=== PATIENT | female | born 1955 | race Caucasian/White ===

== ENCOUNTER 2016-06-13 18:54 | Emergency (ER) | payer BC ==
[2016-06-13 19:10] VITALS: BP 152/74
--- NOTE | 2016-06-13 19:15 | UC ---
Dizzy HPI HPI Summary: URI for approx 2 weeks with cough, congestion. Today developed some "woozy" dizziness, and rapid HR when she laid down. No fever. Teeth hurt, some facial pain. No cardiac hx and no cardiac risk factors. - History Of Current Complaint Stated Complaint: RAPID HEART RATE, DIZZINESS, LIGHTHEADED Time Seen by Provider: 06/13/16 18:56 Hx Obtained From: Patient Hx Last Menstrual Period: n/a Onset/Duration: Sudden Onset, Lasting Hours, Still Present Timing: Constant Severity Initially: Moderate Severity Currently: Moderate Pain Intensity: 0 Pain Scale Used: 0-10 Numeric Character: Lightheaded, Dizzy Aggravating Factor(s): Nothing Alleviating Factor(s): Nothing Associated Signs And Symptoms: Positive: Palpitations - rapid HR - Risk Factors Cardiac Risk Factors: Negative CVA Risk Factor: Negative - Allergies/Home Medications Allergies/Adverse Reactions: Allergies Allergy/AdvReac Type Severity Reaction Status Date / Time Tetracycline Allergy Itching Verified 06/13/16 19:04 Home Medications: Home Medications Ibuprofen [Advil] 600 mg PO Q4H PRN 06/13/16 [History Confirmed 06/13/16] diPHENhydraMINE PO* [Benadryl PO*] 25 mg PO BEDTIME PRN 06/13/16 [History Confirmed 06/13/16] PMH/Surg Hx/FS Hx/Imm Hx Previously Healthy: Yes - Surgical History Surgical History: Yes Surgery Procedure, Year, and Place: c section x 3, tubal ligation, t/a - Family History Known Family History: Positive: Cardiac Disease - mother - Social History Occupation: Employed Full-time Lives: Alone Alcohol Use: Occasionally Substance Use Type: None Smoking Status (MU): Never Smoked Tobacco - Immunization History Most Recent Influenza Vaccination: March 2015 Review of Systems Constitutional: Negative Skin: Negative Eyes: Negative ENT: Other - sinus pressure Respiratory: Negative Cardiovascular: Negative Gastrointestinal: Negative Genitourinary: Negative Motor: Negative Neurovascular: Negative Musculoskeletal: Negative Neurological: Negative Psychological: Negative All Other Systems Reviewed And Are Negative: Yes Physical Exam Triage Information Reviewed: Yes Appearance: No Pain Distress, Well-Nourished, Ill-Appearing Vital Signs: noted, BP mild elevation Vital Signs Reviewed: Yes Eyes: Positive: Conjunctiva Clear ENT: Positive: Pharynx normal, TMs normal, Other: - sinus tenderness, essie maxillary Neck: Positive: Supple, Nontender, No Lymphadenopathy Respiratory: Positive: Lungs clear, Normal breath sounds, No respiratory distress Cardiovascular: Positive: RRR, No Murmur, Pulses Normal, Brisk Capillary Refill Abdomen Description: Positive: Nontender, Soft. Negative: Distended, Guarding Musculoskeletal: Positive: Strength Intact, ROM Intact, Other: - no calf tenderness Neurological: Positive: Alert, Muscle Tone Normal Psychological Exam: Normal Skin Exam: Normal Dizzy Course/Dx - Course Course Of Treatment: EKG SR nl AVIVCT nl axis; no acute changes; computer reads LVH; NSSTW changes. Pt signs AMA for ambulance, transferred by private car to [facility] - Differential Dx/Diagnosis Differential Diagnosis/HQI/PQRI: Benign Paroxysmal Positional Vertigo, Coronary Artery Disease, Labyrinthitis, Myocardial Infarction Provider Diagnoses: vertigo. palpitations - Physician Notifications Time Discussed With Above Provider: 19:25 - Ever Ruelas NP Instructed by Provider To: Will See In ED Discharge - Discharge Plan Condition: Stable Disposition: AGAINST MEDICAL ADVICE Discharge Disposition Comment: pt transferred by private car to [facility]
[2016-06-13] MEDS ORDERED: Azithromycin TAB* 250 MG PO ONE (21:43)
[2016-06-13] MEDS ORDERED: Azithromycin TAB* 250 MG ONE (21:47)
== END 2016-06-13 19:24 | disposition left against medical advice (07) ==
LOC: UCCORT 18:54
DX: R42 Dizziness and giddiness (principal); R00.2 Palpitations; Z88.1 Allergy status to other antibiotic agents
CPT/HCPCS: 93005; 99212; A9270-GY; G0463

== ENCOUNTER 2017-04-30 14:33 | Emergency (ER) | payer BC ==
[2017-04-30 15:36] VITALS: BP 136/75
--- NOTE | 2017-04-30 15:53 | UC ---
Throat Pain/Nasal Tyrel HPI - HPI Summary HPI Summary: 62 female presents to with complaints of nasal and sinus congestion/pressure that began yesterday and worsened today. States it is causing her to have a headache and feel off balance. Denies ear pain and sore throat. States pain radiates into top of teeth/roof of mouth. Has been taking ibuprofen for headache and pressure with some relief. No other medications. No cough. No other complaints. No PMHx. States she had a sinus infection in the past and it feels very similar. No vision changes or trauma. - History of Current Complaint Chief Complaint: UCRespiratory Stated Complaint: sinuses Time Seen by Provider: 04/30/17 15:32 Hx Obtained From: Patient Hx Last Menstrual Period: n/a Onset/Duration: Sudden Onset, Lasting Days, Still Present, Worse Since Severity: Moderate Pain Intensity: 4 Pain Scale Used: 0-10 Numeric Cough: None Associated Signs & Symptoms: Positive: Sinus Discomfort, Nasal Discharge - Allergies/Home Medications Allergies/Adverse Reactions: Allergies Allergy/AdvReac Type Severity Reaction Status Date / Time Tetracycline Allergy Itching Verified 04/30/17 15:36 Home Medications: Home Medications Cholecalciferol [Vitamin D] 1,000 unit PO DAILY 04/30/17 [History Confirmed ] Omeprazole CAP* [Prilosec CAP* 20 MG] 20 mg PO DAILY 04/30/17 [History Confirmed 04/30/17] busPIRone TAB* [Buspar TAB*] 1 tab PO DAILY 04/30/17 [History Confirmed 04/30/17 ] PMH/Surg Hx/FS Hx/Imm Hx - Additional Past Medical History Additional PMH: Denies DM and HTN - Surgical History Surgical History: Yes Surgery Procedure, Year, and Place: c section x 3, tubal ligation, t/a - Family History Known Family History: Positive: Unknown, Cardiac Disease - mother - Social History Alcohol Use: Occasionally Substance Use Type: None Smoking Status (MU): Former Smoker - Immunization History Most Recent Influenza Vaccination: March 2015 Review of Systems Constitutional: Negative ENT: Nasal Discharge, Sinus Congestion, Sinus Pain/Tenderness Respiratory: Negative Cardiovascular: Negative Neurological: Headache All Other Systems Reviewed And Are Negative: Yes Physical Exam Triage Information Reviewed: Yes Appearance: Well-Appearing, No Pain Distress, Well-Nourished Vital Signs: Initial Vital Signs Temp 98 F 04/30/17 15:29 Pulse 67 04/30/17 15:29 Resp 20 04/30/17 15:29 BP 136/75 04/30/17 15:29 Pulse Ox 100 04/30/17 15:29 Vital Signs Reviewed: Yes Eyes: Positive: Conjunctiva Clear ENT: Positive: Pharynx normal, Nasal congestion, TMs normal, Sinus tenderness. Negative: Tonsillar swelling, Tonsillar exudate, Trismus Dental: Positive: Percussion Tenderness @ - maxillary b/l. Negative: Cervical Lymphadenopathy Neck: Positive: Supple, Nontender Respiratory: Positive: Chest non-tender, Lungs clear, Normal breath sounds, No respiratory distress, No accessory muscle use Cardiovascular: Positive: RRR, No Murmur, Pulses Normal, Brisk Capillary Refill Musculoskeletal: Positive: Strength Intact Neurological: Positive: Alert Skin Exam: Normal Throat Pain/Nasal Course/Dx - Course Course Of Treatment: due to HPI and PE findings appears to be suffering from acute sinusitis. will treat with augment. saline rinses, flonase, increase fluid intake, hot showers, hot compresses. rest. aware of worsening signs and symptoms. continue ibuprofen for headache and pain. follow up. no concern for other etiology at this time. - Differential Dx/Diagnosis Differential Diagnosis/HQI/PQRI: Sinusitis, Tonsillitis, URI Provider Diagnoses: acute sinusitis Discharge - Discharge Plan Condition: Stable Disposition: HOME Prescriptions: Amoxicillin/Clavulanate TAB* [Augmentin TAB 875*] 875 mg PO BID #20 tab Patient Education Materials: Sinusitis (ED), Warm Compress or Soak (ED) Referrals: Shannon Bonner MD [Primary Care Provider] - Additional Instructions: Take prescribed medication as directed, until entire dose is finished. Continue ibuprofen for pain and inflammation. Saline nasal rinses, hot compresses and hot shower. Flonase for nasal congestion. Increase fluid intake and get plenty of rest. Follow up with PCP. Any new or worsening signs/symptoms please seek medical attention as discussed.
== END 2017-04-30 16:09 | disposition home or self-care (01) ==
LOC: UCCORT 14:33
DX: J01.90 Acute sinusitis, unspecified (principal); Z87.891 Personal history of nicotine dependence
CPT/HCPCS: 99212; G0463

== ENCOUNTER 2017-06-26 08:30 | Emergency (ER) | payer BC ==
--- NOTE | 2017-06-26 08:41 | UC ---
Cardiac HPI - HPI Summary HPI Summary: 62 year old female with concerns of chest pressure that has been occurring at times every 30 minutes and has felt unwell the past few days. No previous significant cardiac history. Had somewhat similar Sx in July 2016 - - went to ED, had neg labs, xray and EKG. did not after that have any further testing. Has had more stress in the past year and daughter is expecting this Summer to have her first grandchild. Has had the Sx on and off Since Friday and was present more or less all morning hence the reason for being seen today. Upon exam with this provider her Sx subsided and no longer with chest pressure, fluttering or any cardiac concerns. No elephant on chest. Pain does not radiate to back. No syncope. No vision changes. Has taken ASA lately full dose. Has had recurrent GERD Sx as well. No blood in stool. No vomiting. No stomach pain. - History of Current Complaint Stated Complaint: CHEST DISCOMFORT Time Seen by Provider: 06/26/17 08:39 Hx Obtained From: Patient Hx Last Menstrual Period: n/a Onset/Duration: Gradual Onset Timing: Constant Initial Severity: Mild Current Severity: Moderate Character: Fluttering Aggravating Factor(s): Nothing Alleviating Factor(s): Rest Related History: Similar Episode/Dx as - July 2016 - Risk Factors Pulmonary Embolism Risk Factors: Negative Cardiac Risk Factors: Negative, Family History - mom [place] about age 70 - Allergy/Home Medications Allergies/Adverse Reactions: Allergies Allergy/AdvReac Type Severity Reaction Status Date / Time Tetracycline Allergy Itching Verified 06/26/17 08:46 Home Medications: Home Medications Aspirin TAB* [Aspirin 325 MG TAB*] 325 mg PO SEE INSTRUCTIONS 06/26/17 [History Confirmed 06/26/17] PMH/Surg Hx/FS Hx/Imm Hx Previously Healthy: Yes GI/ History: Gastroesophageal Reflux Psychological History: Anxiety - Surgical History Surgical History: Yes Surgery Procedure, Year, and Place: c section x 3, tubal ligation, t/a - Family History Known Family History: Positive: Cardiac Disease - mother - Social History Occupation: Employed Full-time Alcohol Use: Occasionally Substance Use Type: None Smoking Status (MU): Former Smoker - Immunization History Most Recent Influenza Vaccination: March 2015 Review of Systems Cardiovascular: Chest Pain Psychological: Anxious Is Patient Immunocompromised?: No All Other Systems Reviewed And Are Negative: Yes Physical Exam Triage Information Reviewed: Yes Appearance: Well-Appearing, No Pain Distress, Well-Nourished Vital Signs Reviewed: Yes Eye Exam: Normal ENT Exam: Normal Dental Exam: Normal Neck exam: Normal Neck: Positive: 1 Respiratory Exam: Normal Cardiovascular Exam: Normal Abdominal Exam: Normal Musculoskeletal Exam: Normal Neurological Exam: Normal Psychological Exam: Normal Skin Exam: Normal - Assessment/Plan Course Of Treatment: CP resolved at OV. EKG normal. No risk factors of concern. Pt prefers to f/u with PCP and discuss outpatient stress testing, CBT and perhaps SSRI due to anxiety . She requests to return to work today and will agree but if any Sx return to go to ED. For GERD like Sx consider adding H2 mary in PM prn until seen by PCP - Differential Diagnoses - Chest Pain Differential Diagnosis/HQI/PQRI: Angina - Clinical Impression Provider Diagnoses: Chest pain due to anxiety. Elevated BP without history of HTN Discharge - Discharge Plan Condition: Good Disposition: HOME Patient Education Materials: Chest Pain (ED) Referrals: Shannon Bonner MD [Primary Care Provider] - 1 Day Additional Instructions: Please follow up with Dr Bonner for discussion about cardiac stress testing and discuss therapy for reducing any anxiety which may be contributing to your symptoms.
[2017-06-26 08:53] VITALS: BP 150/70
== END 2017-06-26 09:15 | disposition home or self-care (01) ==
LOC: UCCORT 08:30
DX: F41.9 Anxiety disorder, unspecified (principal); R03.0 Elevated blood-pressure reading, without diagnosis of hypertension; K21.9 Gastro-esophageal reflux disease without esophagitis
CPT/HCPCS: 93005; 99211; G0463

== ENCOUNTER 2017-10-08 10:17 | Emergency (ER) | payer BC ==
[2017-10-08 10:30] VITALS: BP 137/79
--- NOTE | 2017-10-08 11:17 | UC ---
Abdominal Pain Female HPI - HPI Summary HPI Summary: Pt c/o sudden onset abdominal pain and loose stools X 10 days. Loose stools occur "with each time I eat" . Does report that OTC antidiarrheal do improve frequency of loose stool. Pt denies any hx of GI disorders other than polyp in colon found ten years ago. Pt has colonoscopies every 2 or three years. Pt denies hematochezia, BRBPR, fatty stool,fever, chills, unexplained weight loss, nausea or vomiting. Does report that stool has "foul odor" denies recent antibiotic use. Does report eating food that sat out for several hours prior to onset of abdominal complaint - History of Current Complaint Chief Complaint: UCGI Stated Complaint: STOMACH COMP Time Seen by Provider: 10/08/17 10:58 Hx Obtained From: Patient Hx Last Menstrual Period: n/a ?: No Onset/Duration: Sudden Onset, Lasting Days - 10 Timing: Constant Severity Initially: Mild Severity Currently: Mild Pain Intensity: 0 Location: Diffuse Radiates: No Character: Burning, Colicy, Cramping Aggravating Factor(s): Food Alleviating Factor(s): Other: - anti diarrheal OTC Associated Signs and Symptoms: Positive: Diarrhea - Risk Factors Ectopic Risk Factor: Negative Ovarian Torsion Risk Factor: Negative Allergies/Adverse Reactions: Allergies Allergy/AdvReac Type Severity Reaction Status Date / Time tetracycline Allergy Itching Verified 10/08/17 10:22 Home Medications: Home Medications Aspirin 81 mg CHEW TAB* [Aspirin Low Dose TAB*] 81 mg PO Q36H 10/08/17 [History Confirmed 10/08/17] Cholecalciferol TAB* [Vitamin D TAB*] 1,000 unit PO DAILY 10/08/17 [History Confirmed 10/08/17] Loperamide CAP* [Imodium CAP*] 2 mg PO Q4H PRN 10/08/17 [History Confirmed 10/08] Magnesium Oxide [Magnesium] 250 mg PO DAILY 10/08/17 [History Confirmed 10/08/17 ] Melatonin 5 mg PO BEDTIME 10/08/17 [History Confirmed 10/08/17] PMH/Surg Hx/FS Hx/Imm Hx Previously Healthy: Yes Cardiovascular History: Cardiac Disease, Other - dysrhythmia Other Cardiovascular History: dysrhythmia GI/ History: Other - colon polyps Other GI/ History: polyps - Surgical History Surgical History: Yes Surgery Procedure, Year, and Place: c section x 3, tubal ligation, t/a - Family History Known Family History: Positive: Unknown, Cardiac Disease - mother - Social History Occupation: Employed Full-time Lives: Alone Alcohol Use: Occasionally Substance Use Type: None Smoking Status (MU): Former Smoker Have You Smoked in the Last Year: No When Did the Patient Quit Smoking/Using Tobacco: 10 years ago - Immunization History Most Recent Influenza Vaccination: March 2017 Review of Systems Constitutional: Fatigue, Other - diaphoresis intermittent Skin: Negative Eyes: Negative ENT: Negative Respiratory: Negative Cardiovascular: Negative Gastrointestinal: Abdominal Pain, Diarrhea Genitourinary: Negative Motor: Negative Neurovascular: Negative Musculoskeletal: Negative Neurological: Negative Psychological: Negative Is Patient Immunocompromised?: No All Other Systems Reviewed And Are Negative: Yes Physical Exam Triage Information Reviewed: Yes Appearance: Well-Appearing Vital Signs: Initial Vital Signs Temp 98.4 F 10/08/17 10:25 Pulse 74 10/08/17 10:25 Resp 16 10/08/17 10:25 BP 137/79 10/08/17 10:25 Pulse Ox 100 10/08/17 10:25 Vital Signs Reviewed: Yes Eye Exam: Normal ENT Exam: Normal Dental Exam: Normal Neck exam: Normal Respiratory Exam: Normal Cardiovascular Exam: Normal Abdominal Exam: Normal Bowel Sounds: Positive: Present Musculoskeletal Exam: Normal Neurological Exam: Normal Psychological Exam: Normal Skin Exam: Normal Abd Pain Female Course/Dx - Differential Dx/Diagnosis Differential Diagnosis: Irritable Bowel Syndrome, Other - gastritis, food poisoning Provider Diagnoses: gastritis. gastroenteritis Discharge - Sign-Out/Discharge Documenting (check all that apply): Discharge/Admit/Transfer - Discharge Plan Condition: Stable Disposition: HOME Patient Education Materials: Gastritis (DC), Abdominal Pain (ED) Referrals: Shannon Bonner MD [Primary Care Provider] - As Soon As Possible - Billing Disposition and Condition Condition: STABLE Disposition: HOME
[2017-10-08 18:46] LABS: ABS Basophils 0 10^3/ul (0-0.2); ABS Eosinophils 0 10^3/ul (0-0.6); ABS Lymphocytes 1.5 10^3/ul (1.0-4.8); ABS Monocytes 0.5 10^3/ul (0-0.8); ABS Neutrophils 5.2 10^3/ul (1.5-7.7); ABS Nucleated RBC 0 10^3/ul; Eosinophil % 0.2 % (0-6); Hematocrit 39 % (35-47); Hemoglobin 13.1 g/dl (12.0-16.0); Lymphocyte % 21.1 % (25-47); Mean Corpuscular HGB Conc 34 g/dl (31-36); Mean Corpuscular Hemoglobin 29 pg (27-31); Mean Corpuscular Volume 87 fL (80-97); Mean Platelet Volume 9.5 um3 (7.4-10.4); Nucleated Red Blood Cells % 0; Platelet Count 248 10^3/ul (150-450); Red Blood Count 4.46 10^6/ul (4.0-5.4); Red Cell Distribution Width 13 % (10.5-15); White Blood Count 7.2 10^3/ul (3.5-10.8)
[2017-10-08 19:10] LABS: EGFR Non-African American 76.5 (>60)
--- NOTE | 2017-10-12 14:43 | UC ---
- Progress Note Progress Note: Stool culture: neg E. Coli 0157 neg shiga 1+2 C dif neg neg stool occult blood neg rotavirus Positive fecal Lactoferrin No change in treatment Pt was updated results by RN recommend f/u with PCP ore return if sx persist Discharge - Sign-Out/Discharge Documenting (check all that apply): Post-Discharge Follow Up - Discharge Plan Condition: Stable Disposition: HOME Patient Education Materials: Gastritis (DC), Abdominal Pain (ED) Referrals: Shannon Bonner MD [Primary Care Provider] - As Soon As Possible - Billing Disposition and Condition Condition: STABLE Disposition: HOME
== END 2017-10-08 11:58 | disposition home or self-care (01) ==
LOC: UCCORT 10:17
DX: K29.70 Gastritis, unspecified, without bleeding (principal); K52.9 Noninfective gastroenteritis and colitis, unspecified; Z88.1 Allergy status to other antibiotic agents; Z87.891 Personal history of nicotine dependence
CPT/HCPCS: 36415; 80053; 82272; 83630; 83735; 85025; 87045; 87046; 87077; 87338; 87425; 87493; 87899; 99211; G0463

== ENCOUNTER 2019-02-08 09:20 | Emergency (ER) | payer BC ==
[2019-02-08 09:34] VITALS: BP 145/68
--- NOTE | 2019-02-08 09:45 | UC ---
Minor Trauma HPI - HPI Summary HPI Summary: 63-year-old female who was emptying a recycling bin at the recycling center on Friday, 3 days ago, when she jumped up to reach the falling recycling bin and she came down onto a concrete wall and the right side of her lower ribs. She continues to have right lower rib pain and pain on inspiration. No nausea vomiting or diarrhea. - History of Current Complaint Chief Complaint: UCGeneralIllness Stated Complaint: LEFT RIB INJURY Time Seen by Provider: 02/08/19 09:32 Hx Obtained From: Patient Hx Last Menstrual Period: n/a ?: No Onset/Duration: Sudden Onset Onset Of Pain: Immediate Severity Initially: Moderate Severity Currently: Moderate Pain Intensity: 6 Mechanism Of Injury: Blunt Trauma Aggravating Factor(s): Coughing, Deep Breaths, Movement Alleviating Factor(s): Nothing Associated Signs And Symptoms: Negative: Loss Of Consciousness, Ecchymosis, Swelling - Allergies/Home Medications Allergies/Adverse Reactions: Allergies Allergy/AdvReac Type Severity Reaction Status Date / Time tetracycline Allergy Itching Verified 02/08/19 09:34 Home Medications: Home Medications Acetaminophen TAB* [Tylenol TAB*] 1,000 mg PO Q4H PRN 02/08/19 [History Confirmed 02/08/19] Ibuprofen TAB* [Advil TAB*] 600 mg PO Q8H PRN 02/08/19 [History Confirmed ] PMH/Surg Hx/FS Hx/Imm Hx Previously Healthy: Yes Cardiovascular History: Other - PVC GI/ History: Gastroesophageal Reflux - Surgical History Surgical History: Yes Surgery Procedure, Year, and Place: c section x 3, tubal ligation, t/a - Family History Known Family History: Positive: Unknown, Cardiac Disease - mother - Social History Alcohol Use: Occasionally Substance Use Type: None Smoking Status (MU): Former Smoker Have You Smoked in the Last Year: No When Did the Patient Quit Smoking/Using Tobacco: 10 years ago - Immunization History Most Recent Influenza Vaccination: March 2017 Review of Systems All Other Systems Reviewed And Are Negative: Yes Respiratory: Positive: Other - Pain on inspiration in the right lower rib area. No shortness of breath. Musculoskeletal: Positive: Other: - Right lower rib and chest wall pain. Is Patient Immunocompromised?: No Physical Exam Triage Information Reviewed: Yes Appearance: Well-Appearing, Well-Nourished, Other: - Some guarding when she is moving and laying down sitting up. Vital Signs: Initial Vital Signs Temp 99.3 F 02/08/19 09:28 Pulse 70 02/08/19 09:28 Resp 18 02/08/19 09:28 BP 145/68 02/08/19 09:28 Pulse Ox 99 02/08/19 09:28 Vital Signs Reviewed: Yes Respiratory: Positive: Lungs clear, Normal breath sounds, No respiratory distress, No accessory muscle use, Other: - Right lower anterior ribs mildly tender on palpation. No crepitus. No bruising, erythema, swelling or deformity. Cardiovascular: Positive: RRR, No Murmur, Pulses Normal, Brisk Capillary Refill Abdomen Description: Positive: No Organomegaly, Soft, Guarding, Other: - Pain on palpation right upper quadrant abdomen with some mild guarding. No bruising , erythema, deformity or swelling is present.. Negative: CVA Tenderness (R), CVA Tenderness (L), Distended Musculoskeletal: Positive: Strength Intact, ROM Intact Neurological: Positive: Alert, Muscle Tone Normal Psychological Exam: Normal Skin Exam: Normal Minor Trauma Course/Dx - Course Course Of Treatment: After discussion with Dr. Villalobos, it's felt the patient should be evaluated in the emergency room cause of her abdominal right upper quadrant tenderness. Patient is agreeable to this plan of action. She was advised no eating or drinking prior to going to the ER. - Differential Dx/Diagnosis Provider Diagnosis: RUQ abdominal pain, Right-sided chest wall pain Discharge ED - Sign-Out/Discharge Documenting (check all that apply): Patient Departure All imaging exams completed and their final reports reviewed: No Studies - Discharge Plan Condition: Fair Disposition: HOME-RECOMMEND TO ED Referrals: Shannon Bonner MD [Primary Care Provider] - Additional Instructions: After the evaluation by the nurse practitioner, it is recommended that you go to the emergency room for further evaluation of the abdominal pain where you should receive additional testing that can be completed in the emergency department. It is recommended that you go directly to the emergency department. This evaluation may include blood work or imaging. This testing will be directed and decided by the provider that evaluates you within the emergency department. If pain becomes worse, you feel lightheaded or you develop uncontrolled vomiting, or have any other concerns while you are driving to the emergency room, please pipe puller and call 911. - Billing Disposition and Condition Condition: FAIR Disposition: Home-Recommend to ED
== END 2019-02-08 09:56 | disposition home health service (06) ==
LOC: UCCORT 09:20
DX: R10.11 Right upper quadrant pain (principal); R07.89 Other chest pain; Z87.891 Personal history of nicotine dependence
CPT/HCPCS: 99212; G0463

== ENCOUNTER 2019-09-01 17:19 | Emergency (ER) | payer BC, OTHER ==
--- NOTE | 2019-09-01 17:51 | UC ---
Telehealth HPI HPI Summary: 64 y/o female presents to the urgent care c/o sore throat, dry cough, nasal congestion, fatigue and body aches for the past 2 days. 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 She has taken Ibuprofen and Tylenol PO to alleviate symptoms. Last dose of Ibuprofen 600mg PO taken was around 1000am. Pt states her symptoms started w/ mild left ear pain which has resolved and then sore throat w/ dry cough. Pain w/ swallowing /10. Pt denies fever, but she has felt hot and chills. She aslo denies SOB, chest pain, VILLANUEVA, dizziness, abdominal pain, N/V/D. Telehealth PMH Previously Healthy: Yes - Pt denies PMHX Endocrine/Hematology History: Denies: Hx Diabetes, Hx Thyroid Disease Cardiovascular History: Denies: Hx Hypertension Respiratory History: Denies: Hx Asthma, Hx Chronic Obstructive Pulmonary Disease (COPD) GI History: Denies: Hx Ulcer - Cancer History Hx Chemotherapy: No Hx Radiation Therapy: No - Surgical History Surgical History: Yes Surgery Procedure, Year, and Place: c section x 3. tubal ligation. t/a Infectious Disease History: No - Family History Known Family History: Positive: Cardiac Disease - mother - Social History Occupation: Employed Full-time Lives: With Family Alcohol Use: Rare Substance Use Type: Reports: None Smoking Status (MU): Former Smoker Have You Smoked in the Last Year: No UC Telehealth ROS All Other Systems Reviewed And Are Negative: Yes Positive: Fatigue, Other - body aches Eyes: Negative Positive: Sore Throat, Ear Ache - mild left ear pain, Nasal Discharge - clear Cardiovascular: Negative Positive: Cough - dry cough Gastrointestinal: Negative Genitourinary: Negative Positive: Myalgia Skin: Negative Neurological/Mental Status: Negative Positive: Weakness Psychological: Normal Telehealth PE Telehealth Physical Exam: VITAL SIGNS: Reviewed. To decrease potential exposure of COVID 19 the physical examination was performed through Telemedicine which limits the examination. Patient is a well developed and nourished female who is sitting comfortably in her care. Patient is in any acute pain or respiratory distress. Appearance: Positive: No Pain Distress, Well-Nourished - , Ill-Appearing Skin: Positive: Skin Color Reflects Adequate Perfusion Eyes: Positive: Normal ENT: Positive: Hearing grossly normal, Nasal congestion, Hoarse voice Respiratory/Lung Sounds: Positive: Normal Respiratory Effort, Cough Cardiovascular: Positive: Skin Color Reflects Adequate Perfusion Neurological: Positive: Alert, Oriented to Person Place, Time Psychiatric: Positive: Normal [facility] Course/Dx Assessment/Plan: 64 y/o female presents to the urgent care c/o sore throat, dry cough, nasal congestion, fatigue and body aches for the past 2 days. 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 She has taken Ibuprofen and Tylenol PO to alleviate symptoms. Last dose of Ibuprofen 600mg PO taken was around 1000am. Pt states her symptoms started w/ mild left ear pain which has resolved and then sore throat w/ dry cough. Pain w/ swallowing 5/10. Pt denies fever, but she has felt hot and chills. She aslo denies SOB, chest pain, VILLANUEVA, dizziness, abdominal pain, N/V/D. Hx obtained. Pt is hemodynamically stabel, A&OX3. PE done with help of Telemedicine to avoid potential exposure to COVID19. Pt w/ possible viral syndrome. Rapid strep ordered, result: negative. COVID19 testing ordered since Pt is a health care nurse. Pt advised results will have a turn over of 3-6 days. Pt advised her to quarantine while waiting for the results. She was advised she will receive a call from us to notify her of the results. Pt advised to take Tylenol to alleviate symptoms. Increase hydration and boost his immune system by eating well, taking Vitamin C and avoiding strenuous exercise. D/C instructions explained. Pt understood and agreed w/ plan of care. Provider Diagnoses: Viral syndrome Telehealth Disposition Provider Recommendation for Treatment: [facility] Telehealth Visit: Patient Consented Verbally to Telehealth Visit Telehealth Patient Statement: The patient should understand that they are communicating with their provider via a secure communication platform and that all the same privacy and confidentiality rules apply. They will also be responsible for copayments or coinsurances that apply to any Telehealth visit. Patient Identifiers: 2 Patient Identifiers Verified for Telehealth Visit Telehealth Visit Start Time: 17:45 Telehealth Visit End Time: 18:10 Telehealth Provider Attestation: The above services were appropriate to provide in a Telehealth setting.
--- NOTE | 2019-09-05 09:52 | UC ---
- Progress Note Progress Note: Lab reviewed today: COVID 19 undetectable Nursing to call and inform the patient. Course/Dx - Diagnoses Provider Diagnoses: Viral syndrome Discharge ED - Sign-Out/Discharge Documenting (check all that apply): Post-Discharge Follow Up All imaging exams completed and their final reports reviewed: No Studies - Discharge Plan Condition: Stable Disposition: HOME Patient Education Materials: Viral Syndrome (ED) Forms: COVID-19 Tested & Isolation Referrals: Shannon Bonner MD [Primary Care Provider] - 1 Week Additional Instructions: 1- Rapid strep: negative. 1- Oropharyngeal swabs have been sent to the lab to r/o COVID 19, you will be notified of any abnormality as soon as we get the results. 2-Please Take Tylenol PO q6-8hrs prn as instructed after meals to alleviate fever, or myalgias. Take Vitamin C to boost your immune system. Increase fluid intake, eat well, rest and avoid strenuous exercise. 3- Please isolate at home until you get the results. Please f/u the isolation instructions as describe below Isolation - important Facts to Know after being Tested Please note that after being tested, you must go straight home, since you are now on mandatory home isolation as directed by the Health Department. Your test is expected to return in about one week and you will be contacted with the result of your test. Our office will contact you daily on behalf of the Health Department to ensure that you are in compliance with mandatory home isolation. What does mandatory isolation mean? You must go straight home without any stops on the way. You must stay from all others in your home (even children - for their safety), If possible, use a bathroom that only you use. If this is not possible, it must be disinfected after you use it, or you may use a commode in your bedroom. Sleep in a separate bedroom and have all meals etc. brought to your bedroom door. Visitors or non-household members are not allowed to enter your home for the duration of the isolation period. You cannot go to work, school, public places, or social gatherings. You are not to leave home for any purpose until you receive negative results and your status permits it and are counseled by your doctor. The following advice may be of help: Household Members: Household members are to remain from you inside your home and will not be allowed to use your bedroom or bathroom. Visitors: Visitors or non-household members are not allowed to enter your home for the duration of the isolation period. If you develop new symptoms or need medical treatment: call your primary care practitioner for direction first. Please do not go to the ER or Urgent Care without speaking to your doctor. In case of emergency call 911. You must state that you are under isolation for COVID-19 testing. Important points: You will be informed about your results as soon as they come in it could take about a week. If your test is negative, you are released from isolation if your condition permits. You should remain home for as long as you have symptoms, including but not limited to cough, higher than normal temperature for you, or shortness of breath. If you have no symptoms but did have an exposure you will have to remain in quarantine for the full 14 days. If your test is positive, remain in isolation and you can expect a phone call from the health department also for further instructions. Please comply with your isolation for the sake of your loved ones and others. We understand this is a difficult time for you and our community. We want you to know that all of us and the Health Department are here to provide care for you and your family. We are sorry for the difficulties this situation is causing you. Please remain calm and act responsibly - Billing Disposition and Condition Condition: STABLE Disposition: Home
== END 2019-09-01 18:15 | disposition home or self-care (01) ==
LOC: UCCORT 17:19
DX: B34.9 Viral infection, unspecified (principal); Z20.828 Contact with and (suspected) exposure to other viral communicable diseases; Z87.891 Personal history of nicotine dependence
CPT/HCPCS: 87635; 87651; 99211; G0463; Q3014